=== PATIENT | male | born 1940 | race Hispanic/Latino ===

== ENCOUNTER 2018-12-23 07:06 | Day surgery (SDC) | payer OTHER, MEDICARE ==
[2018-12-20 15:56] LABS: BASOPHILS % (AUTO) 0.7 % (0.0-5.0); EOSINOPHILS % (AUTO) 16.6 % (0.0-8.0); HEMATOCRIT 42.4 % (42-54); LYMPHOCYTES % (AUTO) 15.6 % (21.0-51.0); MEAN CORPUSCULAR HEMOGLOBIN 29.8 pg (27.0-33.0); MEAN CORPUSCULAR HGB CONC 33.8 g/dL (32.0-36.0); MEAN CORPUSCULAR VOLUME 88.3 fL (79-99); MONOCYTES % (AUTO) 9.1 % (3.0-13.0); PLATELET COUNT (AUTO) 177 K/uL (130-400); RED CELL DISTRIBUTION WIDTH 13.1 % (11.0-15.5); WHITE BLOOD COUNT (AUTO) 10.5 K/uL (4.8-10.8)
[2018-12-20 16:08] LABS: INR 1.05 (0.85-1.15); PARTIAL THROMBOPLASTIN TIME 28.6 SEC (26.3-35.5)
[2018-12-20 16:09] LABS: POTASSIUM 4.5 mmol/L (3.5-5.1)
--- NOTE | 2018-12-20 16:10 | NUR ---
ekg informed dr. purvis of abnormal ekg. no orders received. proceed with planned procedure.
[2018-12-20 16:16] VITALS: BP 145/82
[2018-12-20 16:57] LABS: APPEARANCE,URINE Cloudy (CLEAR); BILIRUBIN,URINE Negative (NEGATIVE); COLOR,URINE Dark Yellow (YELLOW); GLUCOSE, URINE (UA) Negative (NEGATIVE); KETONES,URINE Negative (NEGATIVE); LEUKOCYTE ESTERASE ,URINE Moderate (NEGATIVE); NITRATE,URINE Negative (NEGATIVE); OCCULT BLOOD,URINE Large (NEGATIVE); PH,URINE 5.5 (5.0-8.0); PROTEIN,URINE POS 2+ mg/dL (NEGATIVE)
[2018-12-20 17:08] LABS: BACTERIA,URINE Few /HPF (None Seen); YEAST,URINE BUDDING Moderate /HPF (None Seen)
[2018-12-20 17:09] LABS: MUCUS,URINE Many LPF (None Seen); SQUAMOUS EPITHELIAL CELL,UR 0-2 /HPF (0-2)
--- NOTE | 2018-12-22 15:20 | NUR ---
labs abnormal labs reported to Dr. Corona, no further orders given at this time, ok to proceed with sx
[2018-12-23] VITALS (14 sets, daily range): BP systolic 124–146; BP diastolic 63–85
[~2018-12-23] VITALS: Ht 172.7 cm; Wt 81.0 kg
[~2018-12-23 07:06] MED LIST: LEVO500T89 PO; LORA2TAB2 PO; LOSA100T58 PO; METF-444 PO; MULT-1296 PO; ROSU10TA22 PO
[2018-12-23] MEDS ORDERED: CEFTRIAXONE SODIUM 1 GM ONE (07:32)
[2018-12-23] MEDS ORDERED: SODIUM CHLORIDE 0.9% 1000ML 1,000 ML IV ONE (07:32)
[2018-12-23] MEDS ORDERED: GENTAMICIN SULFATE 400 MG in SODIUM CHLORIDE 0.9% 100 ML IV SCH (07:45)
[2018-12-23] MEDS: CEFTRIAXONE SODIUM 1 GM IVP SCH ×2 (07:45→09:00)
[2018-12-23] MEDS ORDERED: LIDOCAINE PF 2% 5ML ABBOJECT ONE (08:27)
[2018-12-23] MEDS ORDERED: MIDAZOLAM HCL 1 MG/ML 2ML VIAL ONE (08:27)
[2018-12-23] MEDS ORDERED: PROPOFOL 10 MG/ML 20ML VIAL IV ONE (08:28)
[2018-12-23] MEDS ORDERED: FENTANYL CITRATE PF 50 MCG/1 ML 5ML AMP IV ONE (08:28)
[2018-12-23] MEDS ORDERED: ROCURONIUM 10MG/1ML SYR 10 MG/ML ML ONE (08:28)
[2018-12-23] MEDS ORDERED: EPHEDRINE SULFATE 50 MG/ML AMPULE ONE (09:00)
[2018-12-23] MEDS ORDERED: GLYCOPYRROLATE 1 MG/5 ML SYRINGE ONE (09:24)
[2018-12-23] MEDS ORDERED: ONDANSETRON HCL 4 MG/2 ML VIAL ONE (09:24)
[2018-12-23] MEDS ORDERED: DEXAMETHASONE SOD PHOSPHATE 10MG/ML 1ML VIAL ONE (09:24)
[2018-12-23] MEDS ORDERED: NEOSTIGMINE 5MG/5ML SYR IV ONE (09:24)
--- NOTE | 2018-12-23 11:40 | NUR ---
PT LEFT VIA WHEELCHAIR IN PVT CAR WITH DAUGHTER. PER PATIENT REQUEST AND DAUGHTER WHO IS A NURSE NO LEG BAND SMITH APPLIED. PT. LEFT WITH BAG SMITH SECURE, INTACT AND PATENT URINE PALE YELLOW. PT. HAND NO COMPLICATION, LEFT STABLE.
== END 2018-12-23 11:40 ==
LOC: DAH 07:06
PROVIDERS: ATTEND Urology
DX: N40.1 Benign prostatic hyperplasia with lower urinary tract symptoms (principal); R33.9 Retention of urine, unspecified; I10 Essential (primary) hypertension; F41.9 Anxiety disorder, unspecified; E11.9 Type 2 diabetes mellitus without complications; Z79.01 Long term (current) use of anticoagulants
CPT/HCPCS: 36415; 52648; 71045; 80048; 81001; 82948 ×2; 85025; 85610; 85730; 87088; 93005; 96365; A4215; A4221; A4222; A4223 ×2; A4354; A4358; A4600; A4663; C1758; J0696; J1100; J1580; J2001; J2250; J2405; J2704; J2710; J3010; J3490 ×2; J7030 ×2

== ENCOUNTER 2018-12-28 14:36 | Inpatient (IN) | payer MEDICARE, OTHER ==
[~2018-12-28] VITALS: Ht 177.8 cm; Wt 81.0 kg
[2018-12-28 15:39] LABS: APPEARANCE,URINE Clear (CLEAR); BILIRUBIN,URINE Negative (NEGATIVE); COLOR,URINE Yellow (YELLOW); GLUCOSE, URINE (UA) Negative (NEGATIVE); KETONES,URINE Trace mg/dL (NEGATIVE); LEUKOCYTE ESTERASE ,URINE Large (NEGATIVE); NITRATE,URINE Positive (NEGATIVE); OCCULT BLOOD,URINE Moderate (NEGATIVE); PROTEIN,URINE POS 1+ mg/dL (NEGATIVE)
[2018-12-28 15:39] LABS: BASOPHILS % (AUTO) 0.4 % (0.0-5.0); EOSINOPHILS % (AUTO) 0.3 % (0.0-8.0); HEMATOCRIT 43.3 % (42-54); LYMPHOCYTES % (AUTO) 6.2 % (21.0-51.0); MEAN CORPUSCULAR HEMOGLOBIN 28.5 pg (27.0-33.0); MEAN CORPUSCULAR VOLUME 86.2 fL (79-99); MONOCYTES % (AUTO) 5.4 % (3.0-13.0); NEUTROPHILS % (AUTO) 87.7 % (40.0-77.0); PLATELET COUNT (AUTO) 189 K/uL (130-400); RED BLOOD CELL COUNT(AUTO) 5.03 MIL/uL (4.50-6.20); RED CELL DISTRIBUTION WIDTH 13.4 % (11.0-15.5); WHITE BLOOD COUNT (AUTO) 16.8 K/uL (4.8-10.8)
[2018-12-28] MEDS ORDERED: CEFTRIAXONE SODIUM 1 GM ONE (15:58)
[2018-12-28] MEDS ORDERED: SODIUM CHLORIDE 0.9% 1000ML 1,000 ML IV ONE ×2 (15:58→21:02)
[2018-12-28 16:00] LABS: CREATININE 1.1 mg/dL (0.5-1.5); POTASSIUM 4.7 mmol/L (3.5-5.1)
[2018-12-28 16:04] LABS: BACTERIA,URINE Few /HPF (None Seen); SQUAMOUS EPITHELIAL CELL,UR 0-2 /HPF (0-2)
[2018-12-28 16:06] LABS: ALBUMIN 3.4 g/dL (3.5-5.0); BILIRUBIN,TOTAL 0.6 mg/dL (0.2-1.0)
[2018-12-28] MEDS: SODIUM CHLORIDE 0.9% 1000ML 1,000 ML IV SCH (17:37)
[2018-12-28] MEDS ORDERED: ACETAMINOPHEN 325 MG TAB PO PRN (17:45)
[2018-12-28] MEDS ORDERED: ONDANSETRON HCL 4 MG/2 ML VIAL IV PRN (17:45)
[2018-12-28] MEDS ORDERED: LACTULOSE 20 GM/30 ML UDCUP PO PRN (17:45)
[2018-12-28] MEDS ORDERED: LEVOFLOXACIN 500 MG/D5W 100 ML 100 ML ONE (17:49)
[2018-12-28] MEDS: FAMOTIDINE 20MG TAB 20 MG TAB PO SCH (21:00)
[2018-12-28] MEDS ORDERED: FAMOTIDINE/PF 20 MG/2 ML VIAL IV ONE (21:05)
[2018-12-28 23:35] VITALS: BP 133/74
--- NOTE | 2018-12-28 23:35 | NUR ---
ED ADMIT PATIENT ARRIVED FROM ED VIA STRETCHER. NO VISITORS ACCOMPANYING. PATIENT ALERT AND ABLE TO PROVIDE INFORMATION.
[2018-12-29] VITALS (7 sets, daily range): BP systolic 120–160; BP diastolic 68–104
[2018-12-29 06:04] LABS: BASOPHILS % (AUTO) 0.7 % (0.0-5.0); EOSINOPHILS % (AUTO) 1.9 % (0.0-8.0); HEMATOCRIT 33.7 % (42-54); LYMPHOCYTES % (AUTO) 9.1 % (21.0-51.0); MEAN CORPUSCULAR HEMOGLOBIN 29.9 pg (27.0-33.0); MEAN CORPUSCULAR HGB CONC 34.2 g/dL (32.0-36.0); MEAN CORPUSCULAR VOLUME 87.2 fL (79-99); MONOCYTES % (AUTO) 9.2 % (3.0-13.0); NEUTROPHILS % (AUTO) 79.1 % (40.0-77.0); PLATELET COUNT (AUTO) 131 K/uL (130-400); RED BLOOD CELL COUNT(AUTO) 3.86 MIL/uL (4.50-6.20); RED CELL DISTRIBUTION WIDTH 13.1 % (11.0-15.5); WHITE BLOOD COUNT (AUTO) 8.8 K/uL (4.8-10.8)
[2018-12-29 06:07] LABS: POTASSIUM 4.2 mmol/L (3.5-5.1)
[2018-12-29] MEDS: SODIUM CHLORIDE 0.9% 1000ML 1,000 ML IV SCH ×2 (07:06→17:38)
--- NOTE | 2018-12-29 07:50 | NUR ---
NOTE AAOX3. DENIES PAIN OR DISTRESS OR DISCOMFORT. CAME IN WITH CHILLS AND DYSURIA. DX UTI SEPSIS. HE IS ON IV ABX. WAITING ON URINE CULTURES. AFEBRILE NO OTHER PROBLEMS VOICED. NO OTHER COMPLAINS.
[2018-12-29] MEDS: ENOXAPARIN SODIUM 30 MG/0.3 ML SQ SCH (10:01)
[2018-12-29] MEDS: FAMOTIDINE 20MG TAB 20 MG TAB PO SCH ×2 (10:01→20:19)
[2018-12-29] MEDS: FLUCONAZOLE 200 MG/NS 100 ML 100 ML IV SCH (10:02)
--- NOTE | 2018-12-29 12:00 | NUR ---
NOTE DR GRIFFITH ROUNDED EARLIER AND PATIENT WAS INFORMED WE ARE WAITING FOR URINE CULTURE RESULTS. WILL BE RECEIVING IV ABX. PATIENT IS OKAY WITH THIS. NO QUESTIONS ASKED
--- NOTE | 2018-12-29 12:04 | NUR ---
DC PLAN PER PATIENT, STATES HE IS INDEPENDENT, LIVES WITH DAUGHTER, HER AND KIDS, HAS [employer] HOME [facility] WITH 3 VISITS PER WEEK, NO EQUIPMENT AND FEELS SAFE TO RETURN HOME. Addendum: 12/29/18 at 1205 by CIRA PEÑA RN CM Amended: Links added.
[2018-12-29] MEDS: CEFTRIAXONE SODIUM 1 GM IV SCH (17:38)
--- NOTE | 2018-12-29 22:30 | NUR ---
PATIENT HAD CALL LIGHT ON, NURSE ENTERED THE ROOM, PATIENT NOTED WITH BLOOD ON HEAD AND FLOOR. IV OUT. PATIENT STATES " I FELL BY FREAK ACCIDENT, I HAVE A BAD LEG AND I KNOW I SHOULD HAVE CALLED YOU GIRLS, I AM SO SORRY, I WAS JUST TRYING TO PEE AND LOST MY BALANCE." PATIENT NOTED SITTING ON EDGE OF BED. NEURO CHECKS DONE, NO DEFICITS NOTED. HOSPITALIST PAGED. RETURN CALL PENDING. AT BEDSIDE. PATIENT MOVED CLOSER TO NURSE STATION AT THIS TIME. NURSE REDIRECTED PATIENT THAT SPOUSE COULD NO LONGER BE IN THE BED WITH HIM AND ENCOURAGED TO USE CALL LIGHT FOR ANY ASSISTANCE. PATIENT VERBALIZED UNDERSTANDING OF ALL EDUCATION GIVEN VIA TEACH BACK. NO SIGNS OF DISTRESS NOTED AT THIS TIME. CALL LIGHT WITHIN REACH. WILL CONTINUE TO BE OBSERVED. Addendum: 12/29/18 at 2316 by LOUIS PEÑA RN RN Amended: Links added.
--- NOTE | 2018-12-29 23:16 | NUR ---
HOSPITALIST PAGED AGAIN FOR ORDERS, RETURN CALL PENDING. Addendum: 12/29/18 at 1527 by LOUIS PEÑA RN RN Amended: Links added.
--- NOTE | 2018-12-29 23:44 | NUR ---
LUH TORO IN TO SEE PATIENT. NEW ORDERS RECEIVED AND CARRIED OUT. Addendum: 12/29/18 at 2345 by LOUIS PEÑA RN RN Amended: Links added.
[2018-12-30 04:00] VITALS: BP 133/73
[2018-12-30 05:37] LABS: BASOPHILS % (AUTO) 1.5 % (0.0-5.0); EOSINOPHILS % (AUTO) 7.1 % (0.0-8.0); HEMATOCRIT 34.7 % (42-54); LYMPHOCYTES % (AUTO) 20.3 % (21.0-51.0); MEAN CORPUSCULAR HEMOGLOBIN 29.1 pg (27.0-33.0); MEAN CORPUSCULAR HGB CONC 33.8 g/dL (32.0-36.0); MEAN CORPUSCULAR VOLUME 86.2 fL (79-99); MONOCYTES % (AUTO) 12.9 % (3.0-13.0); NEUTROPHILS % (AUTO) 58.2 % (40.0-77.0); PLATELET COUNT (AUTO) 148 K/uL (130-400); RED BLOOD CELL COUNT(AUTO) 4.02 MIL/uL (4.50-6.20); RED CELL DISTRIBUTION WIDTH 13.1 % (11.0-15.5); WHITE BLOOD COUNT (AUTO) 8.3 K/uL (4.8-10.8)
[2018-12-30 05:50] LABS: CREATININE 0.8 mg/dL (0.5-1.5); POTASSIUM 3.7 mmol/L (3.5-5.1)
[2018-12-30 07:30] VITALS: BP 153/90
--- NOTE | 2018-12-30 08:20 | NUR ---
NOTE AAOX3. DENIES PAIN OR DISCOMFORT AT THIS TIME. PENDING URINE CULTURE RESULTS. HE CONTINUES WITH IVF AND IV ABX AND ANTIFUNGAL DUE TO YEAST FOUND ON PREVIOUS URINE CULTURE. HAS BEEN AFEBRILE. PATIENT SUFFERED A FALL LAST NIGHT. HE BECAME TANGLED WITH IV LINE AND PULLED OUT IV ACCIDENTALLY AND SLIPPED WHILE TRYING TO GET UP TO USE URINAL. HE REGRETS NOT CALLING FOR HELP. HE HAS SMALL BRUISE TO LEFT OCCIPITAL AREA BUT NO BROKEN SKIN NOTED. NO OTHER PROBLEMS VOICED AT THIS TIME.
[2018-12-30] MEDS: FLUCONAZOLE 200 MG/NS 100 ML 100 ML IV SCH (10:09)
[2018-12-30] MEDS: FAMOTIDINE 20MG TAB 20 MG TAB PO SCH ×2 (10:10→20:44)
[2018-12-30] MEDS: ENOXAPARIN SODIUM 30 MG/0.3 ML SQ SCH (10:10)
[2018-12-30 11:00] VITALS: BP 135/79
[2018-12-30 16:00] VITALS: BP 158/81
[2018-12-30] MEDS: CEFTRIAXONE SODIUM 1 GM IV SCH (18:23)
--- NOTE | 2018-12-30 18:50 | NUR ---
NOTE HAS REMAINED STABLE ALL THROUGH THE DAY. C/O SLIGHT HEADACHE. WILL MEDICATE WITH TYLENOL. WILL PASS IT ON REPORT TO MONITOR LOC. INFORMED ASIF BACA AT THIS TIME FOR SHE IS AT NURSE'S STATION AND SHE SAID TO MONITOR PATIENT AND IF THERE IS ANY CHANGE IN LOC TO REPEAT CT HEAD WITHOUT CONTRAST.
[2018-12-30 19:13] VITALS: BP 158/81
[2018-12-30] MEDS: LOSARTAN 100 MG TABLET PO SCH (20:44)
[2018-12-31] VITALS (7 sets, daily range): BP systolic 144–171; BP diastolic 77–92
[2018-12-31 05:30] LABS: BASOPHILS % (AUTO) 1.2 % (0.0-5.0); HEMATOCRIT 33.7 % (42-54); LYMPHOCYTES % (AUTO) 24.3 % (21.0-51.0); MEAN CORPUSCULAR HEMOGLOBIN 28.9 pg (27.0-33.0); MEAN CORPUSCULAR VOLUME 87.7 fL (79-99); MONOCYTES % (AUTO) 14.4 % (3.0-13.0); NEUTROPHILS % (AUTO) 43.1 % (40.0-77.0); NUCLEATED RED BLOOD CELLS 0.1 % (0.0-0.19); PLATELET COUNT (AUTO) 111 K/uL (130-400); RED BLOOD CELL COUNT(AUTO) 3.85 MIL/uL (4.50-6.20); RED CELL DISTRIBUTION WIDTH 13.1 % (11.0-15.5); WHITE BLOOD COUNT (AUTO) 7.9 K/uL (4.8-10.8)
[2018-12-31 05:44] LABS: CREATININE 0.8 mg/dL (0.5-1.5); POTASSIUM 3.9 mmol/L (3.5-5.1)
[2018-12-31] MEDS: HOME MEDICATION 1 EACH PO SCH (09:00)
[2018-12-31] MEDS: FLUCONAZOLE 200 MG/NS 100 ML 100 ML IV SCH (09:35)
[2018-12-31] MEDS: CEFTRIAXONE SODIUM 1 GM IV SCH (09:35)
[2018-12-31] MEDS: FAMOTIDINE 20MG TAB 20 MG TAB PO SCH ×2 (09:35→20:45)
[2018-12-31] MEDS: LOSARTAN 100 MG TABLET PO SCH ×2 (09:35→20:45)
[2018-12-31] MEDS: ENOXAPARIN SODIUM 30 MG/0.3 ML SQ SCH (09:35)
[2018-12-31] MEDS ORDERED: ROSUVASTATIN CALCIUM 10 MG PO SCH (21:00)
[2019-01-01 03:30] VITALS: BP 152/89
[2019-01-01 08:00] VITALS: BP 148/93
[2019-01-01] MEDS: FLUCONAZOLE 200 MG/NS 100 ML 100 ML IV SCH (08:59)
[2019-01-01] MEDS: FAMOTIDINE 20MG TAB 20 MG TAB PO SCH (08:59)
[2019-01-01] MEDS: CEFTRIAXONE SODIUM 1 GM IV SCH (08:59)
[2019-01-01] MEDS: ENOXAPARIN SODIUM 30 MG/0.3 ML SQ SCH (09:00)
[2019-01-01] MEDS: LOSARTAN 100 MG TABLET PO SCH (09:00)
[2019-01-01] MEDS: HOME MEDICATION 1 EACH PO SCH (09:00)
[2019-01-01 12:00] VITALS: BP 163/107
[2019-01-01] MEDS ORDERED: LEVO500T2 PO (12:35)
== END 2019-01-01 14:14 | disposition home or self-care (01) | DRG 872 ==
LOC: EDH 14:36 → EDHIP 17:37 → 4CH 21:18 → 4BH 23:26
PROVIDERS: ADMIT Hospitalist; ATTEND Hospitalist
DX: A41.9 Sepsis, unspecified organism (principal); N39.0 Urinary tract infection, site not specified; E87.1 Hypo-osmolality and hyponatremia; E44.1 Mild protein-calorie malnutrition; M48.061 Spinal stenosis, lumbar region without neurogenic claudication; E11.9 Type 2 diabetes mellitus without complications; E78.5 Hyperlipidemia, unspecified; G89.29 Other chronic pain; I10 Essential (primary) hypertension; N40.0 Benign prostatic hyperplasia without lower urinary tract symptoms; W01.0XXA Fall on same level from slipping, tripping and stumbling without subsequent striking against object, initial encounter; Z82.3 Family history of stroke; Z82.49 Family history of ischemic heart disease and other diseases of the circulatory system; Z83.3 Family history of diabetes mellitus; Y93.89 Activity, other specified; Y92.89 Other specified places as the place of occurrence of the external cause; Y99.8 Other external cause status; Z68.25 Body mass index [BMI] 25.0-25.9, adult
CPT/HCPCS: 36415; 70450; 71045; 80048; 80053; 81001; 82948; 83605; 85025; 87040; 87077; 87088; 87186; 87804; G0378; J0696; J1450; J1650; J1956; J3490; J7030